=== PATIENT | male | born 1965 | race Caucasian/White ===

== ENCOUNTER 2025-02-13 23:20 | Outpatient (CLI) | payer OTHER, SELFPAY | END 2025-02-13 23:21 | disposition home or self-care (01) | PROVIDERS: Visit Provider Family Medicine | DX: M79.671 Pain in right foot (principal); R22.43 Localized swelling, mass and lump, lower limb, bilateral | CPT/HCPCS: A0425; A0429 ==

== ENCOUNTER 2025-02-13 23:42 | Emergency (ER) | payer OTHER, SELFPAY ==
[2025-02-13 23:47] VITALS: BP 131/91; PULSE 99; RESP 18; TEMP 36.6; O2SAT 99; BMI 25.4
--- NOTE | 2025-02-14 00:06 | ED.GENADULT ---
HPI - General Adult General Time Seen by Provider: 00:06 Date Seen: 02/14/25 Chief complaint: Lower Extremity Swelling Stated complaint: Swollen Feet Time Seen by Provider: 02/14/25 00:06 Source: patient, RN notes reviewed and old records reviewed Mode of arrival: EMS Limitations: no limitations History of Present Illness HPI narrative: 49-year-old male who comes in today with bilateral lower extremity swelling. Patient was released from nursing home today, went to a local truck stop but ?had nowhere to go. ? Related Data Allergies Allergy/AdvReac Type Severity Reaction Status Date / Time No Known Drug Allergies Allergy Verified 02/13/25 23:57 PFSH PFSH Social History Non-prescribed substance use: marijuana (any form) Exam Narrative: Exam Narrative: General: Well-developed and well-nourished, no acute distress Head: Atraumatic and normocephalic Eyes: Pupils are equal reactive, extraocular motions intact, conjunctiva clear ENT: External nose and ears are normal, posterior pharynx without erythema or exudate Neck: No midline cervical tenderness, full spontaneous range of motion the neck, trachea midline, no adenopathy Heart: Regular rate and rhythm no murmurs or thrills Lungs: Clear to auscultation bilaterally without wheezes or crackles Abdomen: Soft, nontender, nondistended with active bowel sounds Musculoskeletal: No tenderness, deformity, or edema Neurologic: Awake, alert, and oriented x3, no gross focal neurologic deficits, cranial nerves intact as tested Psych: Mood and affect are appropriate Skin: No rashes Const: Vital Signs, click to edit/add: Vital Signs - 24 hr 02/13/25 23:47 Temperature 97.9 F Pulse Rate [Right] 99 Respiratory Rate 18 Blood Pressure [Ri ght Upper Arm] 131/91 H Pulse Oximetry 99 Oxygen Delivery Me thod Room Air Course Course ED Course: Patient seen examined, presents today with bilateral foot swelling. Reviewed most recent emergency department visit from February 09 which was at [place], at that time expressed concern for shortness of breath, chest pain, but was noted to have no leg swelling, basic panel, troponin, BNP all normal with normal chest x-ray. On initial exam here, vital signs are normal. Lungs are clear with no crackles, heart is regular. Trace bilateral foot swelling but no pitting, no specific swelling, redness, or joint effusion of the ankles or MTP joint, no swelling proximal to the ankles. Suspect dependent edema, pulses are equal bilaterally. No hemosiderin deposition or suggestion for venous insufficiency although certainly this would be a consideration as well. Given bilateral findings, no calf pain, and minimal swelling, DVT is clinically unlikely and so no ultrasound will be performed today. Patient also had extensive workup at outside facility a couple of days ago including chest x-ray, cardiac evaluation. Basic metabolic panel and BNP will be repeated today although no overt signs of heart failure. Reevaluation(s) Time of Reevaluation #1: 01:43 Reevaluation #1: Labs independently interpreted by me with reassuring basic panel, negative BNP. Patient is stable for discharge but currently Unable to get home, lives several hours away and has no transport. Will have social work see in the morning. Vital Signs Vital signs: Initial Vital Signs Temperature 97.9 F 02/13/25 23:47 Temperature Source Temporal Artery Scan 02/13/25 23:47 Pulse Rate 99 02/13/25 23:47 Pulse Rhythm Regular 02/13/25 23:47 Pulse Strength 3+ Normal 02/13/25 23:47 Respiratory Rate 18 02/13/25 23:47 Blood Pressure 131/91 H 02/13/25 23:47 Blood Pressure Mean 104 02/13/25 23:47 Blood Pressure Position Sitting 02/13/25 23:47 Pulse Oximetry 99 02/13/25 23:47 Oxygen Delivery Method Room Air 02/13/25 23:47 Vital Signs Temperature 97.9 F 02/13/25 23:47 Pulse Rate 99 02/13/25 23:47 Respiratory Rate 18 02/13/25 23:47 Blood Pressure 131/91 H 02/13/25 23:47 Pulse Oximetry 99 02/13/25 23:47 Oxygen Delivery Method Room Air 02/13/25 23:47 Temperature 97.9 F 02/13/25 23:47 Pulse Rate 99 02/13/25 23:47 Respiratory Rate 18 02/13/25 23:47 Blood Pressure 131/91 H 02/13/25 23:47 Pulse Oximetry 99 02/13/25 23:47 Oxygen Delivery Method Room Air 02/13/25 23:47 Medical Decision Making Lab Data Labs: Lab Results 02/14/25 Range/Units 00:40 Sodium 139 (135-149) mmol/L Potassium 4.2 (3.6-5.1) mmol/L Chloride 103 (96-114) mmol/L Carbon Dioxide 31 (20-32) mmol/L Anion Gap 5 L (7-15) mEq/L BUN 17 (7-30) mg/dL Creatinine 0.8 (0.5-1.5) mg/dL Estimated Creat Clear 85.14 Estimated GFR 101 ml/min Glucose 106 (60-115) mg/dL Calcium 9.1 (8.4-10.6) mg/dL NT-Pro-B Natriuret Pep 231 pg/mL Discharge Plan Discharge Clinical Impression: Bilateral swelling of feet Patient Disposition: Home, Self-Care Condition: Stable Instructions: Leg Edema (ED) Additional Instructions: Elevate your legs as able Follow-up with primary care Activity Level: No Restrictions Discharge Diet: Regular Follow Up/Referrals: Provider,Not a Local [Primary Care Provider] - Stand Alone Forms: MyHealth Info Instructions
--- OUTSIDE RECORDS SUMMARY | 2025-02-14 00:55 | XMS_ITS | Referral Summary ---
Author Organization [facility] Address [address] [place] [id number] Care Team Providers Care Medical Insurance Biller Name Role Phone Provider, No Primary Primary Care Provider Unava ilable Allergies No known active allergies Medications docusate sodium (COLACE) 100 mg oral CapsuleIndicati ons:Acute post-operative pain Take 1 Capsule (100 mg) by mouth in the morning. Take if using oxycodone to avoid constipation postop. May increase to twice a day if needed. 90 Capsule 3 05/30/2023 4:41 PM CDT 3 Active acetaminophen (TYLENOL) 500 mg oral TabletIndicatio ns:Acute post-operative pain Take 1-2 Tablets (500-1,000 mg) by mouth every 6 hours if needed (post op pain). 100 Tablet 05/30/2023 4:41 PM CDT 3 Active ibuprofen 600 mg oral TabletIndicatio ns:Acute post-operative pain Take 1 Tablet (600 mg) by mouth every 6 hours if needed (post op pain and inflammation). 30 Tablet 05/30/2023 4:41 PM CDT 3 Active Active Problems Problem Noted Date Diagnosed Date Non-recurrent unilateral ing uinal hernia without obstruction or gangrene 05/19/2023 Social History Tobacco Use Types Packs/Day Years Used Date Smoking Tobacco: Some Days Cigarettes 1 25 Started: 05/20/2023; Last attempted to quit: 05/23/2023 Tobacco Cessation:Ready to Q uit: Not Asked; Counseling Given: Not Answered Comments:4 cigarettes per day Alcohol Use Standard Drinks/Week Comments Yes 4 (1 standard drink = 0.6 oz pur e alcohol) Sex and Gender Information Value Date Recorded Sex Assigned at Not on file Legal Sex Male 5:39 PM CDT Gender Identity Not on file Sexual Orientation Not on file Last Filed Vital Signs Vital Sign Reading Time Taken Comments Blood Pressure 126/79 05/30/2023 6:48 PM CDT Pulse 93 05/30/2023 6:48 PM CDT Temperature 36.5 C (97.7 F) 05/30/2023 6:48 PM CDT Respiratory Rate 14 05/30/2023 6:25 PM CDT Oxygen Saturation 97% 05/30/2023 6:48 PM CDT Inhaled Oxygen Concentration - - Weight 74.8 kg (165 lb) 05/29/2023 3:17 PM CDT Height 180.3 cm (5' 11) 05/29/2023 3:17 PM CDT Body Mass Index 23.01 05/29/2023 3:17 PM CDT Functional Status * Are you deaf or do you have serious difficulty hearing? Answer Date of Assessment Author Yes 05/29/2023 3:18 PM CDT Huber Lee RN * Are you blind or do you have serious difficulty seeing, even when wearing glasses? Answer Date of Assessment Author No 05/29/2023 3:18 PM CDT Huber Lee RN Mental Status * Do you have trouble concentrating, remembering, or making decisions because of a physical, mental, or emotional condition? Answer Entry Date Author No 05/29/2023 3:18 PM CDT Huber Lee RN Plan of Treatment Not on file Medical Devices Implanted Type Area Tennis Court Attendant Device Identifier Shelf Expiration Date Model / Serial / Lot Hardware Hardware Left: Leg Description:Per patient repo rt Mesh Soft Large 3x6 Inch Bard [id number] - [id number] Implanted:Qty : 1 on 05/30/2023 by Javy Silver DO at [facility] Mesh Right: Inguinal Bard 10/17/2027 [id number] / NA / [id number] Care Teams Medical Insurance Biller Relationship Specialty Start Date End Date Provider, No Primary . ELISA S[place] [id number] PCP - General 05/19/23 Additional Source Comments PLEASE NOTE: Replies to this message will not be received.[facility]
--- OUTSIDE RECORDS SUMMARY | 2025-02-14 00:55 | XMS_ITS | Clinical Summary ---
Author Organization [facility] Address [address] [place] [id number] Care Team Providers Care Dam Tender Name Role Phone Clinic, [facility] Primary Care Pro vider Allergies Active Allergy Reactions Criticality Noted Date Comments Propoxyphene Nausea And Vomiting 05/21/2008 Acetaminophen Rash 02/03/2013 Tramadol Tachycardia 05/21/2008 Yellow Dye Rash 02/03/2013 Per patient yellow dye #3 Medications oxyCODONE (ROXICODONE) 5 mg immediate release tablet Take 1 tablet by mouth every 4 hours if needed for Pain. 15 tablet 0 11/14/2014 Active Active Problems Problem Noted Date Diagnosed Date Acute appendicitis 11/14/2014 Tobacco use disorder 02/04/2013 Asthma(493.90) Resolved Problems Problem Noted Date Diagnosed Date Resolved Date Cellulitis and abscess of fo ot, except toes bilateral 02/04/2013 11/14/2014 Bilateral leg edema 02/04/2013 11/14/20 14 RAD (reactive airway disease) 02/04/2013 11/14/2014 Encounters Date Type Department Care Team Description 02/09/2025 8:40 PM CDT - 02/09/2025 10:14 PM CDT Emergency [facility] [address] [place] [address] Darien Madden MD Cough, unspecified type (Primary Dx); SOB (shortness of breath); Reactive airway disease without complication, unspecified asthma severity, unspecified whether persistent (HC); Flank pain Discharge Disposition: Home Self Care 02/09/2025 Travel from Last 3 Months Immunizations Immunization Administration Dates Next Due Pneumococcal Poly,23-Valent (Pneumovax) 10/01/20 07 Social History Tobacco Use Types Packs/Day Years Used Date Smoking Tobacco: Every Day Cigarettes 0.5 30 Smokeless Tobacco: Never Comments:Pt would like torie srivastava on tobacco cessation Alcohol Use Standard Drinks/Week Comments Yes 0 (1 standard drink = 0.6 oz pure alcohol) Pt states 12oz two times per week Interpersonal Safety Answer Date Record ed Are you being hit, kicked, p ushed or yelled at (see row info)? 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 Gender Identity Not on file Sexual Orientation Not on file Obstetrics History Last Filed Vital Signs Vital Sign Reading Time Taken Comments Blood Pressure 129/88 02/09/2025 10:12 PM CDT Pulse 78 02/09/2025 10:12 PM CDT Temperature 36.7 C (98.1 F) 02/09/2025 8:48 PM CDT Respiratory Rate 16 02/09/2025 9:01 PM CDT Oxygen Saturation 100% 02/09/2025 10:12 PM CDT Inhaled Oxygen Concentration - - Weight 78.2 kg (172 lb 6.4 oz) 02/09/2025 8:42 P M CDT Height 180.3 cm (5' 11) 02/09/2025 8:42 PM CDT Body Mass Index 24.04 02/09/2025 8:42 PM CDT Plan of Treatment Health Maintenance Due Date Last Done Comments Tdap 1974 Depression screening for age 12+ 1975 HIV for age 15-65 1978 BMI (ht and wt on same day) for age 18+ 1981 Hepatitis C screening for age 18-79 1981 Tetanus booster 1983 Colonoscopy through age 75 2008 Lipids for age 45-75 2008 Pneumococcal series for age 50+ (2 of 2 - PCV) 013 10/01/2007 Zoster (shingles) series for age 50+ (1 of 2) 05/28/20 13 COVID-19 vaccine series ( - 2023- season) Influenza Vaccine (#1) 2024 RSV vaccine for adults or pr egnancy (1 - 1-dose 75+ series) 2038 Procedures Procedure Name Priority Date/Time Associated Diagnosis Comments UA W/ SEDIMENT EXAM REFLEXED PER CRITERIA STAT 02/09/2025 9:56 PM CDT XR CHEST 1 VIEW PORTABLE STAT 02/09/2025 9:08 PM CDT CBC WITH AUTO DIFFERENTIAL STAT 02/09/2025 9:01 PM CDT TROPONIN T (HS) ONE TIME STAT 02/09/2025 9:01 PM CDT PRO-BNP STAT 02/09/2025 9:01 PM CDT BASIC METABOLIC PANEL STAT 02/09/2025 9:01 PM CDT CBC WITH AUTO DIFFERENTIAL STAT 02/09/2025 9:01 PM CDT BEDSIDE US STUDY ARCHIVE Routine 02/09/2025 8:47 PM CDT EKG 12 LEAD STAT 02/09/2025 8:47 PM CDT from Last 3 Months Results * UA W/ SEDIMENT EXAM REFLEXED PER CRITERIA (02/09/2025 9:56 PM CDT) COLOR Yellow Yellow Color 02/09/2025 10:02 PM CDT [facility] CLARITY Clear Clear Clarity 02/09/2025 10:02 PM CDT [facility] SPECIFIC GRAVITY,URINE 1.025 1.010, 1.015, 1.020, 1.025 02/09/2025 10:02 PM T [facility] PH,URINE 6.0 6.0, 7.0, 8.0, 5.5, 6.5, 7.5, 8.5 02/09/2025 10:02 PM T [facility] UROBILINOGEN, QUALITATIVE Normal Normal EU/dl 02/09/2025 10:02 PM T [facility] PROTEIN, URINE Negative Negative mg/dL 02/09/2025 10:02 PM CDT [facility] GLUCOSE, URINE Negative Negative mg/dL 02/09/2025 10:02 PM CDT [facility] KETONES,URINE Negative Negative mg/dL 02/09/2025 10:02 PM CDT [facility] BILIRUBIN,URI NE Negative Negative 02/09/2025 10:02 PM CDT [facility] OCCULT BLOOD,URINE Negative Negative 02/09/2025 10:02 PM CDT [facility] NITRITE Negative Negative 02/09/2025 10:02 PM CDT [facility] LEUKOCYTE ESTERASE Negative Negative 02/09/2025 10:02 PM CDT [facility] Urine URINE SPECIMEN / Unknown Non-Blood / Unknown 02/09/2025 9:56 PM CDT 02/09/2025 9:59 PM CDT Darien Madden MD URINE Final Result [facility] [address] [place] [address] * XR CHEST 1 VIEW PORTABLE (02/09/2025 9:08 PM CDT) Anatomical Region Laterality Modality HEART, THORAX, CHEST Digital Rad iography 02/09/2025 9:11 PM CDT Narrative 02/09/2025 9:11 PM CDT For Patients: As a result of the Century Cures Act, medical imaging exams and procedure reports are released immediately into your electronic medical record. You may view this report before your referring provider. If you have questions, please contact your health care provider. Indication: Shortness of breath. Technique: Chest 1 view. Comparison: Chest x-ray 05/08/2020. Findings/Impression: The heart is not abnormally enlarged. Normal mediastinal contours. No confluent airspace opacity appreciated. No pleural effusion or pneumothorax. No acute osseous abnormality. Dictated by Shashank Copeland MD @ 02/09/2025 9:11:18 PM (Electronically Signed) Procedure Note Shashank Copeland MD - 02/09/2025 For Patients: As a result of the 21st Century Cures Act, medical imagingexams and procedure reports are released immediately into your electronicmedical record. You may view this report before your referring provider.If you have questions, please contact your health care provider. Indication: Shortness of breath. Technique: Chest 1 view. Comparison: Chest x-ray 05/08/2020. Findings/Impression: The heart is not abnormally enlarged. Normal mediastinal contours. Noconfluent airspace opacity appreciated. No pleural effusion orpneumothorax. No acute osseous abnormality. Dictated by Shashank Copeland MD @ 02/09/2025 9:11:18 PM (Electronically Signed) us Darien Madden MD GENERAL IMAGING Final Result * TROPONIN T (HS) ONE TIME (02/09/2025 9:01 PM CDT) TROPONIN T HS <6 6-15 ng/L ng/L 02/09/2025 9:36 PM CDT [facility] Blood BLOOD SPECIMEN / Unknown Venipuncture / Unknown 02/09/2025 9:01 PM CDT 02/09/2025 9:04 PM CDT [facility] - 02/09/2025 9:36 PM CDT hs-cTnT (Elecsys Troponin T Gen 5) concentration (s) above the sex-specific 99th percentile (16 ng/L or greater for males or 11 ng/L or greater for females) are indicative of myocardial injury. If initial hs-cTnT <=100 ng/L at presentation, a 0h/2h ABSOLUTE (ng/L) delta change (rising or falling) of >=10 ng/L suggests a significant change, whereas a 0h/2h delta change <=3 ng/L suggests no significant change. If initial hs-cTnT >100 ng/L at presentation, a 0h/2h/ RELATIVE (percent, %) delta change of 20% is suggested to distinguish patients with acute vs. chronic myocardial injury. There are multiple etiologies that can cause hs-cTnT increases above the 99th percentile (myocardial injury) other than acute myocardial infarction. Clinical context and careful clinical evaluation are critical for diagnosis and risk-stratification. The diagnosis of acute myocardial infarction requires a rising and/or falling pattern in hs-cTnT concentrations with at least one value above the sex-specific 99th percentile PLUS at least one of the following clinical criteria: ischemic symptoms, new or presumed new significant ST-T wave changes or new LBBB, development of pathological Q waves, imaging evidence of new loss of viable myocardium or new regional wall motion abnormality, or identification of intracoronary atherothrombosis or an acute angiographic culprit on coronary angiography. In appropriate low-risk patients with a non-ischemic electrocardiogram without active chest pain with a symptom onset >3-hours without recurrence, a single initial hs-cTnT<6 ng/L identifies patient with a very low risk in emergency department patient population. Darien Madden MD CHEMISTRY Final Result [facility] [address] [place] [id number] * (ABNORMAL) CBC WITH AUTO DIFFERENTIAL (02/09/2025 9:01 PM CDT) WHITE BLOOD COUNT 11.2(H) 4.5 - 11.0 thou/cu mm 02/09/2025 9:06 PM [facility] RED BLOOD COUNT 5.67 4.30 - 5.90 mil/cu mm 02/09/2025 9:06 PM [facility] HEMOGLOBIN 16.8 13.5 - 17.5 g/dL 02/09/2025 9:06 PM [facility] HEMATOCRIT 50.5 37.0 - 53.0 % 02/09/2025 9:06 PM [facility] MCV 89 80 - 100 fL 02/09/2025 9:06 PM [facility] MCH 29.6 26.0 - 34.0 pg 02/09/2025 9:06 PM [facility] MCHC 33.3 32.0 - 36.0 g/dL 02/09/2025 9:06 PM [facility] RDW 14.3 11.5 - 15.5 % 02/09/2025 9:06 PM T [facility] PLATELET COUNT 187 140 - 440 thou/cu mm 02/09/2025 9:06 PM [facility] MPV 12.1(H) 6.5 - 11.0 fL 02/09/2025 9:06 PM [facility] % NEUT 56.9 % 02/09/2025 9:06 PM [facility] % LYMPH 24.4 % 02/09/2025 9:06 PM [facility] % MONO 14.9 % 02/09/2025 9:06 PM [facility] % EOS 3.5 % 02/09/2025 9:06 PM [facility] % BASO 0.3 % 02/09/2025 9:06 PM [facility] ABSOLUTE NEUTROPHILS 6.4 1.7 - 7.0 thou/cu mm 02/09/2025 9:06 PM [facility] ABSOLUTE LYMPHOCYTES 2.7 0.9 - 2.9 thou/cu mm 02/09/2025 9:06 PM [facility] ABSOLUTE MONOCYTES 1.7(H) <0.9 thou/cu mm 02/09/2025 9:06 PM [facility] ABSOLUTE EOSINOPHILS 0.4 <0.5 thou/cu mm 02/09/2025 9:06 PM [facility] ABSOLUTE BASOPHILS 0.0 <0.3 thou/cu mm 02/09/2025 9:06 PM [facility] Blood BLOOD SPECIMEN / Unknown Venipuncture / Unknown 02/09/2025 9:01 PM CDT 02/09/2025 9:04 PM CDT us Darien Madden MD HEMATOLOGY Final Result [facility] [address] [place] [address] * PRO-BNP (02/09/2025 9:01 PM CDT) PRO-BNP <36 <125 pg/mL 02/09/2025 9:37 PM CDT [facility] Blood BLOOD SPECIMEN / Unknown Venipuncture / Unknown 02/09/2025 9:01 PM CDT 02/09/2025 9:04 PM CDT [facility] - 02/09/2025 9:37 PM CDT The following cut-points have been suggested for the use of proBNP for the diagnostic evaluation of heart failure (HF) in patient with acute dyspnea. Patients with eGFR >= 60 Diagnosis (rule in CHF) <50 Years Old 450 pg/mL 50 - 75 Years Old 900 pg/mL >75 Years Old 1800 pg/mL Exclusion (rule out CHF) Age Independent 300 pg/mL A cutoff of 1200 pg/mL for patients with an eGFR <60 yields a diagnostic sensitivity of 89% and specificity of 72% for acute congestive heart failure. us Darien Madden MD SEND OUTS Final Result [facility] [address] [place], [place] [id number] * BASIC METABOLIC PANEL (02/09/2025 9:01 PM CDT) Pathologist [facility] SODIUM 140 136 - 145 mmol/L 02/09/2025 9:36 PM CDT [facility] POTASSIUM 4.2 3.5 - 5.1 mmol/L 02/09/2025 9:36 PM T [facility] CHLORIDE 104 98 - 107 mmol/L 02/09/2025 9:36 PM T [facility] CO2,TOTAL 27 22 - 29 mmol/L 02/09/2025 9:36 PM T [facility] ANION GAP 9 5 - 18 02/09/2025 9:36 PM CDT [facility] GLUCOSE 98 70 - 99 mg/dL 02/09/2025 9:36 PM T [facility] CALCIUM 9.5 8.8 - 10.4 mg/dL 02/09/2025 9:36 PM CDT [facility] Comment: Reference ranges for this test were updated on 09/24/2024 to reflect our healthy population more accurately. Reference range changes are not retroactively applied to results, but previous results using the same methodology can be interpreted in the context of the new reference range. BUN 15 8 - 23 mg/dL 02/09/2025 9:36 PM T [facility] CREATININE 0.93 0.70 - 1.20 mg/dL 02/09/2025 9:36 PM T [facility] BUN/CREAT RATIO 16 10 - 20 9:36 PM T [facility] eGFR >90 >90 mL/min/1.7 3m2 02/09/2025 9:36 PM T [facility] Comment:As of 2022, eG FR is calculated by the CKD-EPI creatinine equation without race adjustment. eGFR can be influenced by muscle mass, exercise, and diet. The reported eGFR is an estimation only and is only applicable if the renal function is stable. Blood BLOOD SPECIMEN / Unknown Venipuncture / Unknown 02/09/2025 9:01 PM CDT 02/09/2025 9:04 PM CDT us Darien Madden MD CHEMISTRY Final Result [facility] [address] [place] [address] * EKG 12 LEAD (02/09/2025 8:47 PM CDT) Interpretation Normal sinus rhythm Right superior axis deviation Pulmonary disease pattern Right ventricular hypertrophy Abnormal ECG No previous ECGs available BEYOND NOW Ventricular Rate 77 BPM BEYOND NOW Atrial Rate 77 BPM BEYOND NOW P-R Interval 146 ms BEYOND NOW QRS Duration 86 ms BEYOND NOW QT 380 ms BEYOND NOW QTc 430 ms BEYOND NOW P [place] 59 degrees BEYOND NOW R [place] 268 degrees BEYOND NOW T [place] 59 degrees BEYOND NOW 02/09/2025 8:47 PM CDT 02/10/2025 7:20 AM CDT us Darien Madden MD EKG ORD Final Result [facility] NOW [place], [place] from Last 3 Months [place] [address] [address] [place] [address] [place] [place] [address] [facility] [address] [place] [address] Advance Directives * Full Code (Latest Code Status on File) Date Activated Date Inactivated Comments 11/14/2014 5:10 AM 11/15/2014 1:34 AM * Full Code Date Activated Date Inactivated Comments 11/14/2014 4:23 AM 11/14/2014 5:10 AM * Full Code Date Activated Date Inactivated Comments 02/03/2013 11:33 AM 02/04/2013 3:57 PM Care Teams Dam Tender Relationship Specialty Start Date End Date [address] [address] PCP - General 05/08/20
--- OUTSIDE RECORDS SUMMARY | 2025-02-14 00:55 | XMS_ITS | Clinical Summary ---
Author Organization [facility] Address [address] [place] [id number] Care Team Providers Care Cell Liner Name Role Phone Provider, No Primary Primary [...] uinal hernia without obstruction or gangrene 05/19/2023 Family History Medical History Relation Name Comments Asthma Brother Sabino araya Alcohol Abuse Mother Tawana huggins Relation Name Status Comments Brother Sabino araya Mother Tawana huggins Social History Tobacco Use Types Packs/Day Years [...] Mass Index 23.01 05/29/2023 3:17 PM CDT Plan of Treatment Not on file Medical Devices Implanted Type Area Packaging Sales Consultant Device Identifier Shelf Expiration Date Model / Serial / Lot Hardware Hardware Left: Leg Description:Per patient repo rt Mesh Soft Large 3x6 Inch Bard [id number] - [id number] Implanted:Qty : 1 on 05/30/2023 by Javy Silver DO at [facility] Mesh Right: Inguinal Bard 10/17/2027 [id number] / [id number] / [id number] Care Teams Cell Liner Relationship Specialty Start Date End Date Provider, No Primary . ELISA SANTIAGO [id number] PCP - General 05/19/23 Additional Source Comments PLEASE NOTE: Replies to this message will not be received.[facility] hospital and [facility]
[2025-02-14 01:02] LABS: Chloride* 103 mmol/L (96-114); Sodium* 139 mmol/L (135-149)
[2025-02-14 01:03] LABS: Potassium* 4.2 mmol/L (3.6-5.1)
[2025-02-14 01:06] LABS: Anion Gap 5 mEq/L (7-15); Blood Urea Nitrogen* 17 mg/dL (7-30); Calcium* 9.1 mg/dL (8.4-10.6); Carbon Dioxide* 31 mmol/L (20-32); Creatinine* 0.8 mg/dL (0.5-1.5); Est. Creatinine Clearance* 85.14; Estimated Glomerular Filt Rate 101 ml/min; Glucose* 106 mg/dL (60-115)
[2025-02-14 01:19] LABS: NT Pro B Type NatriureticPept* 231 pg/mL
--- NOTE | 2025-02-14 09:20 | PC.SOCIAL ---
Social work: Met with pt who lives 2[place]5 hours away and had indicated he had no way home. Offered pt a taxi to the [facility] and provided him with information on assistance available in the community. Pt states he just received a call back from a friend he has been calling for three days who lives in [place]. He is going to call him back and hopes that his friend can pick him up from the waiting room. Pt declined any social work assistance with discharge planning and will call his friend for a ride.
== END 2025-02-14 10:16 | disposition home or self-care (01) ==
PROVIDERS: Emergency Provider Family Medicine
DX: R22.43 Localized swelling, mass and lump, lower limb, bilateral (principal)
CPT/HCPCS: 36415; 80048; 83880; 99283; 99284